=== PATIENT | male | born 1975 | race Native Hawaiian/Other Pacific Islander ===

== ENCOUNTER 2018-02-16 09:45 | Inpatient (IN) | payer OTHER ==
[~2018-02-16] VITALS: Ht 177.8 cm; Wt 146.9 kg
[2018-02-16 10:14] LABS: Basophils # (auto) 0.1 uL; Basophils % (auto) 0.9 % (0.0-2.0); Eosinophils # (auto) 0 uL; Eosinophils % (auto) 0.7 % (0.0-7.0); Hematocrit 51.1 % (41.0-53.0); Hemoglobin 16.5 g/dL (13.5-17.5); Lymphocytes # (auto) 2.8 uL; Mean Corpuscular Hemoglobin 29.1 pg (28.0-32.0); Mean Corpuscular Hgb Conc. 32.2 g/dL (32.0-36.0); Mean Corpuscular Volume 90.3 fL (80.0-100.0); Monocytes # (auto) 0.5 uL; Monocytes % (auto) 8.5 % (0.0-12.0); Neutrophils # (auto) 2.7 uL; Neutrophils % (auto) 43.9 % (37.0-80.0); Nucleated Red Blood Cells % 0.2 %; Platelet Count (auto) 206 10^3/uL (140-450); Red Blood Cells 5.66 10^6/uL (4.5-5.90); Red Cell Distribution Width 17.5 % (11.8-14.3); White Blood Cell 6.1 10^3/uL (4.4-10.8)
[2018-02-16 10:28] LABS: Albumin 3.2 g/dL (3.4-5.0); Calcium 8.7 mg/dL (8.5-10.1); Potassium 4.4 mmol/L (3.5-5.1)
[2018-02-16 10:33] LABS: BUN/Creatinine Ratio 10.9; Total Protein 7.3 g/dL (6.4-8.2)
[2018-02-16 10:43] LABS: INR 1.29 (0.9-1.15); Partial Thromboplastin Time 28.2 sec (23.78-33.04); Prothrombin Time 13.6 sec (9.27-12.13)
[2018-02-16] MEDS ORDERED: LABETALOL HCL 5 MG/ML ML 20ML VIAL IV ONE (12:00)
[2018-02-16] MEDS ORDERED: FUROSEMIDE 40 MG/4 ML VIAL IV ONE (12:00)
[2018-02-16] MEDS ORDERED: TEMAZEPAM 15 MG CAP PO PRN (13:30)
[2018-02-16] MEDS ORDERED: MORPHINE SULFATE 4 MG/ML SYR/VIAL IV PRN ×2 (13:30)
[2018-02-16] MEDS ORDERED: DEXTROSE (50%) 50ML SYRG IV PRN (13:30)
[2018-02-16] MEDS ORDERED: traMADol HCL 50 MG TAB PO PRN (13:30)
[2018-02-16] MEDS ORDERED: LACTULOSE 20Gm/30ML SOLN PO PRN (13:30)
[2018-02-16] MEDS ORDERED: LORazepam 0.5 MG TAB PO PRN (13:30)
[2018-02-16] MEDS ORDERED: NITROGLYCERIN 0.4 MG SL TAB SL PRN (13:30)
[2018-02-16] MEDS ORDERED: ONDANSETRON HCL 4 MG/2 ML VIAL IV PRN (13:30)
[2018-02-16 14:03] LABS: Urine Bacteria NONE SEEN /hpf (None Seen); Urine Blood Negative /uL (Negative); Urine Hyaline Cast MOD /lpf (0 - 2); Urine Mucus FEW (None Seen); Urine WBC 4 /hpf (0 - 3)
[2018-02-16] MEDS: CARVEDILOL 3.125 MG TAB PO SCH ×2 (14:05→21:45)
[2018-02-16] MEDS: ENALAPRIL MALEATE 2.5 MG TAB PO SCH (14:05)
[2018-02-16] MEDS: ASPirin 81 mg TAB PO SCH (14:05)
[2018-02-16] MEDS: ENOXAPARIN SOD 40 MG/0.4 ML SYRINGE SC SCH (14:05)
[2018-02-16] MEDS: SODIUM CHLOR 0.9% PF (SALINE LOCK) 10ML VIAL/SYR IV SCH ×2 (14:06→21:46)
[2018-02-16] MEDS: NITROGLYCERIN 0.2MG/HR TOPICAL PATCH TD SCH (14:06)
[2018-02-16 14:47] LABS: Alcohol, Urine < 3.0 mg/dL (0-5); Amphetamine Screen, Urine NEGATIVE (NEGATIVE); Barbiturate Scree,Urine NEGATIVE (NEGATIVE); Benzodiazephine Screen, Urine NEGATIVE (NEGATIVE); Cannabinoid Screen, Urine POSITIVE (NEGATIVE); Cocaine Screen, Urine NEGATIVE (NEGATIVE); Opiate Scree,Urine NEGATIVE (NEGATIVE); Phencyclidine Screen, Urine NEGATIVE (NEGATIVE)
[2018-02-16 15:07] VITALS: BP 145/108
[2018-02-16 16:39] VITALS: BP 141/95
[2018-02-16] MEDS: InsuLIN REG 1unit/0.01ml Soln (100units/ml) SC SCH ×2 (16:54→22:17)
[2018-02-16] MEDS: ACCU-CHEK COMFORT CURVE STRIP VI SCH ×2 (16:54→22:16)
[2018-02-16 20:00] VITALS: BP 147/92
[2018-02-16 22:00] VITALS: BP 147/92
[2018-02-17 05:00] VITALS: BP 126/75
[2018-02-17 05:55] LABS: Basophils # (auto) 0.1 uL; Basophils % (auto) 0.9 % (0.0-2.0); Eosinophils # (auto) 0.1 uL; Eosinophils % (auto) 1.1 % (0.0-7.0); Hematocrit 44.2 % (41.0-53.0); Hemoglobin 14.2 g/dL (13.5-17.5); Lymphocytes # (auto) 1.6 uL; Lymphocytes % (auto) 28.8 % (10.0-50.0); Mean Corpuscular Hemoglobin 28.6 pg (28.0-32.0); Mean Corpuscular Hgb Conc. 32.1 g/dL (32.0-36.0); Mean Corpuscular Volume 89.1 fL (80.0-100.0); Monocytes # (auto) 0.6 uL; Monocytes % (auto) 10.3 % (0.0-12.0); Neutrophils # (auto) 3.3 uL; Neutrophils % (auto) 58.9 % (37.0-80.0); Nucleated Red Blood Cells % 0.2 %; Platelet Count (auto) 189 10^3/uL (140-450); Red Blood Cells 4.96 10^6/uL (4.5-5.90); Red Cell Distribution Width 17.2 % (11.8-14.3); White Blood Cell 5.7 10^3/uL (4.4-10.8)
[2018-02-17 06:32] LABS: Potassium 3.9 mmol/L (3.5-5.1)
[2018-02-17 06:40] LABS: Albumin 2.5 g/dL (3.4-5.0); BUN/Creatinine Ratio 14.4; Bilirubin, Total 1.8 mg/dL (0.2-1.0); Calcium 7.8 mg/dL (8.5-10.1)
[2018-02-17] MEDS: SODIUM CHLOR 0.9% PF (SALINE LOCK) 10ML VIAL/SYR IV SCH ×3 (06:46→21:56)
[2018-02-17] MEDS: ACCU-CHEK COMFORT CURVE STRIP VI SCH ×4 (06:46→22:04)
[2018-02-17] MEDS: InsuLIN REG 1unit/0.01ml Soln (100units/ml) SC SCH ×4 (07:02→22:05)
[2018-02-17 08:30] VITALS: BP 124/79
[2018-02-17 09:00] VITALS: BP 124/79
[2018-02-17] MEDS: FUROSEMIDE 40 MG/4 ML VIAL IV SCH (09:30)
[2018-02-17] MEDS: PANTOPRAZOLE 40 MG TAB PO SCH (09:31)
[2018-02-17] MEDS: ENOXAPARIN SOD 40 MG/0.4 ML SYRINGE SC SCH (09:31)
[2018-02-17] MEDS: POTASSIUM CHL 20 Meq TABLET PO SCH (09:31)
[2018-02-17] MEDS: ASPirin 81 mg TAB PO SCH (09:31)
[2018-02-17] MEDS: CARVEDILOL 3.125 MG TAB PO SCH ×2 (09:32→21:57)
[2018-02-17] MEDS: ENALAPRIL MALEATE 2.5 MG TAB PO SCH (09:32)
[2018-02-17] MEDS: NITROGLYCERIN 0.2MG/HR TOPICAL PATCH TD SCH (09:33)
[2018-02-17] MEDS ORDERED: ENOXAPARIN SOD 40 MG/0.4 ML SYRINGE SC SCH (10:00)
[2018-02-17 11:42] LABS: Cholesterol 97 mg/dL (< 200)
[2018-02-17 11:45] LABS: HDL Cholesterol 25 mg/dL (40-59); LDL Cholesterol 73 mg/dL (< 100); Triglycerides 65 mg/dL (< 150)
[2018-02-17 13:00] VITALS: BP 140/94
[2018-02-17 17:00] VITALS: BP 109/73
[2018-02-17 22:03] VITALS: BP 124/68
[2018-02-18 05:43] VITALS: BP 125/78
[2018-02-18] MEDS: SODIUM CHLOR 0.9% PF (SALINE LOCK) 10ML VIAL/SYR IV SCH ×3 (06:36→22:15)
[2018-02-18] MEDS: ACCU-CHEK COMFORT CURVE STRIP VI SCH ×4 (06:36→22:15)
[2018-02-18] MEDS: InsuLIN REG 1unit/0.01ml Soln (100units/ml) SC SCH ×4 (06:37→22:15)
[2018-02-18 08:30] VITALS: BP 127/79
[2018-02-18 09:00] VITALS: BP 127/79
[2018-02-18] MEDS: ENOXAPARIN SOD 40 MG/0.4 ML SYRINGE SC SCH (09:45)
[2018-02-18] MEDS: PANTOPRAZOLE 40 MG TAB PO SCH (09:45)
[2018-02-18] MEDS: POTASSIUM CHL 20 Meq TABLET PO SCH (09:45)
[2018-02-18] MEDS: ASPirin 81 mg TAB PO SCH (09:46)
[2018-02-18] MEDS: NITROGLYCERIN 0.2MG/HR TOPICAL PATCH TD SCH (09:46)
[2018-02-18] MEDS: CARVEDILOL 3.125 MG TAB PO SCH ×2 (09:47→22:00)
[2018-02-18] MEDS: FUROSEMIDE 40 MG/4 ML VIAL IV SCH (09:47)
[2018-02-18] MEDS: ENALAPRIL MALEATE 2.5 MG TAB PO SCH (09:47)
[2018-02-18 13:00] VITALS: BP 133/76
[2018-02-18 17:00] VITALS: BP 118/76
[2018-02-18 22:00] VITALS: BP 117/63
[2018-02-19] VITALS (7 sets, daily range): BP systolic 94–143; BP diastolic 55–92
[2018-02-19] MEDS: ACCU-CHEK COMFORT CURVE STRIP VI SCH ×4 (06:19→21:57)
[2018-02-19] MEDS: InsuLIN REG 1unit/0.01ml Soln (100units/ml) SC SCH ×4 (06:19→21:57)
[2018-02-19] MEDS: SODIUM CHLOR 0.9% PF (SALINE LOCK) 10ML VIAL/SYR IV SCH ×3 (06:19→21:56)
[2018-02-19] MEDS: ACETAMINOPHEN 500 MG TAB PO PRN (06:19)
[2018-02-19] MEDS ORDERED: ADENOSINE 128 MG in GIVE UN-DILUTED 0 ML IV ONE (08:30)
[2018-02-19] MEDS: PANTOPRAZOLE 40 MG TAB PO SCH (14:47)
[2018-02-19] MEDS: ASPirin 81 mg TAB PO SCH (14:48)
[2018-02-19] MEDS: ENALAPRIL MALEATE 2.5 MG TAB PO SCH (14:48)
[2018-02-19] MEDS: CARVEDILOL 3.125 MG TAB PO SCH ×2 (14:48→21:57)
[2018-02-19] MEDS: POTASSIUM CHL 20 Meq TABLET PO SCH (14:48)
[2018-02-19] MEDS: NITROGLYCERIN 0.2MG/HR TOPICAL PATCH TD SCH (14:49)
[2018-02-19] MEDS: FUROSEMIDE 40 MG/4 ML VIAL IV SCH (14:49)
[2018-02-19] MEDS: ENOXAPARIN SOD 40 MG/0.4 ML SYRINGE SC SCH (14:49)
[2018-02-20 05:00] VITALS: BP 112/71
[2018-02-20] MEDS: SODIUM CHLOR 0.9% PF (SALINE LOCK) 10ML VIAL/SYR IV SCH ×3 (06:24→21:57)
[2018-02-20] MEDS: InsuLIN REG 1unit/0.01ml Soln (100units/ml) SC SCH ×4 (06:24→21:57)
[2018-02-20] MEDS: ACCU-CHEK COMFORT CURVE STRIP VI SCH ×4 (06:25→21:57)
[2018-02-20 09:00] VITALS: BP 125/93
[2018-02-20] MEDS: NITROGLYCERIN 0.2MG/HR TOPICAL PATCH TD SCH (10:00)
[2018-02-20] MEDS: ENOXAPARIN SOD 40 MG/0.4 ML SYRINGE SC SCH ×2 (10:00→10:04)
[2018-02-20] MEDS: POTASSIUM CHL 20 Meq TABLET PO SCH (10:03)
[2018-02-20] MEDS: FUROSEMIDE 40 MG/4 ML VIAL IV SCH (10:03)
[2018-02-20] MEDS: CARVEDILOL 3.125 MG TAB PO SCH ×2 (10:03→21:57)
[2018-02-20] MEDS: ASPirin 81 mg TAB PO SCH (10:03)
[2018-02-20] MEDS: ENALAPRIL MALEATE 2.5 MG TAB PO SCH (10:04)
[2018-02-20] MEDS: PANTOPRAZOLE 40 MG TAB PO SCH (10:04)
[2018-02-20 13:00] VITALS: BP 126/93
[2018-02-20 17:51] VITALS: BP 128/89
[2018-02-20] MEDS: ACETAMINOPHEN 500 MG TAB PO PRN (20:10)
[2018-02-20 21:06] VITALS: BP 124/75
[2018-02-21 04:40] VITALS: BP 122/82
[2018-02-21] MEDS: InsuLIN REG 1unit/0.01ml Soln (100units/ml) SC SCH ×4 (06:30→22:50)
[2018-02-21] MEDS: SODIUM CHLOR 0.9% PF (SALINE LOCK) 10ML VIAL/SYR IV SCH ×3 (06:30→22:50)
[2018-02-21] MEDS: ACCU-CHEK COMFORT CURVE STRIP VI SCH ×4 (06:31→22:43)
[2018-02-21 07:53] VITALS: BP 136/93
[2018-02-21 08:00] VITALS: BP 136/93
[2018-02-21] MEDS: ENALAPRIL MALEATE 2.5 MG TAB PO SCH (10:02)
[2018-02-21] MEDS: FUROSEMIDE 40 MG/4 ML VIAL IV SCH (10:03)
[2018-02-21] MEDS: CARVEDILOL 3.125 MG TAB PO SCH ×2 (10:03→22:43)
[2018-02-21] MEDS: PANTOPRAZOLE 40 MG TAB PO SCH (10:04)
[2018-02-21] MEDS: POTASSIUM CHL 20 Meq TABLET PO SCH (10:04)
[2018-02-21] MEDS: ENOXAPARIN SOD 40 MG/0.4 ML SYRINGE SC SCH (10:04)
[2018-02-21] MEDS: NITROGLYCERIN 0.2MG/HR TOPICAL PATCH TD SCH (10:08)
[2018-02-21] MEDS: ASPirin 81 mg TAB PO SCH (10:11)
[2018-02-21 11:36] VITALS: BP 154/86
[2018-02-21 16:08] VITALS: BP 129/86
[2018-02-21 22:00] VITALS: BP 128/98
[2018-02-21] MEDS: ACETAMINOPHEN 500 MG TAB PO PRN (22:51)
[2018-02-22 05:00] VITALS: BP 123/80
[2018-02-22] MEDS: SODIUM CHLOR 0.9% PF (SALINE LOCK) 10ML VIAL/SYR IV SCH ×2 (05:35→14:00)
[2018-02-22] MEDS: ACCU-CHEK COMFORT CURVE STRIP VI SCH ×2 (06:08→11:30)
[2018-02-22] MEDS: InsuLIN REG 1unit/0.01ml Soln (100units/ml) SC SCH ×2 (06:23→11:30)
[2018-02-22 09:00] VITALS: BP 122/84
[2018-02-22] MEDS: NITROGLYCERIN 0.2MG/HR TOPICAL PATCH TD SCH (09:40)
[2018-02-22] MEDS: POTASSIUM CHL 20 Meq TABLET PO SCH (09:41)
[2018-02-22] MEDS: PANTOPRAZOLE 40 MG TAB PO SCH (09:41)
[2018-02-22] MEDS: FUROSEMIDE 40 MG/4 ML VIAL IV SCH (09:41)
[2018-02-22] MEDS: ENOXAPARIN SOD 40 MG/0.4 ML SYRINGE SC SCH (09:41)
[2018-02-22] MEDS: ASPirin 81 mg TAB PO SCH (09:41)
[2018-02-22] MEDS: CARVEDILOL 3.125 MG TAB PO SCH (10:00)
[2018-02-22 13:00] VITALS: BP 153/92
[2018-02-22 15:01] VITALS: BP 122/84
[2018-02-22] MEDS ORDERED: SACUBITRIL-VALSARTAN 24mg/26mg TAB PO SCH (22:00)
== END 2018-02-22 16:48 | disposition home or self-care (01) | DRG 291 ==
LOC: ER 09:45 → TELE 09:46 → TELE-WESTW 15:03
PROVIDERS: ADMIT Internal Medicine; ATTEND Family Medicine
DX: I13.0 Hypertensive heart and chronic kidney disease with heart failure and stage 1 through stage 4 chronic kidney disease, or unspecified chronic kidney disease (principal); I50.43 Acute on chronic combined systolic (congestive) and diastolic (congestive) heart failure; Z68.42 Body mass index [BMI] 45.0-49.9, adult; N17.9 Acute kidney failure, unspecified; R04.2 Hemoptysis; E11.65 Type 2 diabetes mellitus with hyperglycemia; I42.0 Dilated cardiomyopathy; E11.22 Type 2 diabetes mellitus with diabetic chronic kidney disease; N18.9 Chronic kidney disease, unspecified; R00.0 Tachycardia, unspecified; E11.21 Type 2 diabetes mellitus with diabetic nephropathy; E66.01 Morbid (severe) obesity due to excess calories; F12.90 Cannabis use, unspecified, uncomplicated; Z82.49 Family history of ischemic heart disease and other diseases of the circulatory system; Z82.5 Family history of asthma and other chronic lower respiratory diseases; Z83.3 Family history of diabetes mellitus; Z91.19 Patient's noncompliance with other medical treatment and regimen
CPT/HCPCS: 36415; 71046; 78452; 80053; 80061; 80307; 81001; 82550; 82962; 83036; 83735; 83880; 84443; 84484; 85025; 85610; 85730; 86141; 93005; 93017; 93306; 93971; 94761; 96374; 96375; G0378; J0153; J1815

== ENCOUNTER → 2018-04-26 | Outpatient (CLI) | payer OTHER ==
[2018-04-26 14:28] LABS: Basophils # (auto) 0 uL; Eosinophils # (auto) 0.1 uL; Monocytes # (auto) 0.6 uL; Neutrophils # (auto) 4.9 uL
[2018-04-26 14:31] LABS: Urine Bacteria FEW /hpf (None Seen); Urine Blood Negative /uL (Negative); Urine Hyaline Cast MOD /lpf (0 - 2); Urine Mucus FEW (None Seen); Urine Specific Gravity 1.007 (1.001-1.035); Urine Sperm PRESENT /hpf (None Seen); Urine WBC <1 /hpf (0 - 3)
[2018-04-26 14:38] LABS: Basophils % (auto) 0.3 % (0.0-2.0); Eosinophils % (auto) 1.4 % (0.0-7.0); Hematocrit 47.2 % (41.0-53.0); Hemoglobin 16.2 g/dL (13.5-17.5); Lymphocytes % (auto) 34.7 % (10.0-50.0); Mean Corpuscular Hemoglobin 29.8 pg (28.0-32.0); Mean Corpuscular Hgb Conc. 34.4 g/dL (32.0-36.0); Mean Corpuscular Volume 86.9 fL (80.0-100.0); Monocytes % (auto) 6.9 % (0.0-12.0); Neutrophils % (auto) 56.7 % (37.0-80.0); Nucleated Red Blood Cells % 0.1 %; Platelet Count (auto) 271 10^3/uL (140-450); Red Blood Cells 5.43 10^6/uL (4.5-5.90); Red Cell Distribution Width 15.6 % (11.8-14.3); White Blood Cell 8.6 10^3/uL (4.4-10.8)
[2018-04-26 14:54] LABS: Potassium 4.5 mmol/L (3.5-5.1)
[2018-04-26 14:59] LABS: BUN/Creatinine Ratio 21.1; Bilirubin, Total 0.8 mg/dL (0.2-1.0); Total Protein 8.9 g/dL (6.4-8.2)
== END | disposition home or self-care (01) ==
LOC: LAB 13:33
PROVIDERS: ATTEND Nurse Practitioner
DX: E78.5 Hyperlipidemia, unspecified (principal)
CPT/HCPCS: 36415; 80053; 80061; 81001; 82306; 83036; 83880; 84443; 85025

== ENCOUNTER → 2018-05-28 | Outpatient (CLI) | payer OTHER | END | disposition home or self-care (01) | LOC: Rad HDHVI 08:52 | PROVIDERS: ATTEND Internal Medicine | DX: I07.1 Rheumatic tricuspid insufficiency (principal); I11.0 Hypertensive heart disease with heart failure; I50.9 Heart failure, unspecified; I42.9 Cardiomyopathy, unspecified | CPT/HCPCS: 93306 ==

== ENCOUNTER 2018-11-28 12:42 | Inpatient (IN) | payer MEDICAID ==
[~2018-11-28] VITALS: Ht 177.8 cm; Wt 130.7 kg
[2018-11-28 13:41] LABS: Basophils # (auto) 0.1 uL; Basophils % (auto) 0.8 % (0.0-2.0); Eosinophils # (auto) 0.1 uL; Eosinophils % (auto) 1.1 % (0.0-7.0); Hematocrit 40.4 % (41.0-53.0); Hemoglobin 13.6 g/dL (13.5-17.5); Lymphocytes # (auto) 3.2 uL; Lymphocytes % (auto) 36.6 % (10.0-50.0); Mean Corpuscular Hemoglobin 29.7 pg (28.0-32.0); Mean Corpuscular Hgb Conc. 33.7 g/dL (32.0-36.0); Mean Corpuscular Volume 88.1 fL (80.0-100.0); Monocytes # (auto) 0.5 uL; Monocytes % (auto) 5.4 % (0.0-12.0); Neutrophils % (auto) 56.1 % (37.0-80.0); Platelet Count (auto) 288 10^3/uL (140-450); Red Blood Cells 4.59 10^6/uL (4.5-5.90); Red Cell Distribution Width 15.3 % (11.8-14.3); White Blood Cell 8.8 10^3/uL (4.4-10.8)
[2018-11-28 13:59] LABS: Alanine Aminotransferase 28 U/L (16-61); Albumin 3.7 g/dL (3.4-5.0); Anion Gap 7 (5-15); Blood Urea Nitrogen 19 mg/dL (7-18); Carbon Dioxide 28 mmol/L (21-32); Chloride 105 mmol/L (98-107); Glucose 124 mg/dL (74-106); Potassium 4.3 mmol/L (3.5-5.1); Sodium 140 mmol/L (136-145)
[2018-11-28 14:04] LABS: Alkaline Phosphatase 84 U/L (45-117); Aspartate Aminotransferase 21 U/L (15-37); BUN/Creatinine Ratio 17.1; Bilirubin, Total 0.5 mg/dL (0.2-1.0); GFR African American 93 mL/min; GFR Non-African American 76 mL/min; Total Protein 8.6 g/dL (6.4-8.2)
[2018-11-28] MEDS ORDERED: SODIUM CHLORIDE 0.9% 1,000 ML IV ONE (16:53)
[2018-11-28] MEDS ORDERED: ASPirin 81 mg TAB PO ONE (17:00)
[2018-11-28] MEDS ORDERED: MORPHINE SULF INJ 2 MG/ML SYRINGE 1ML IV PRN ×2 (18:30)
[2018-11-28] MEDS ORDERED: DEXTROSE (50%) 50ML SYRG IV PRN (18:30)
[2018-11-28] MEDS ORDERED: ACETAMINOPHEN 500 MG TAB PO PRN (18:30)
[2018-11-28] MEDS ORDERED: ONDANSETRON HCL 4 MG/2 ML VIAL IV PRN (18:30)
[2018-11-28] MEDS ORDERED: NITROGLYCERIN 0.4 MG SL TAB SL PRN (18:30)
[2018-11-28] MEDS ORDERED: HYDROcodone-ACET 5/325MG TAB PO PRN (18:30)
[2018-11-28 20:32] VITALS: BP 110/68
[2018-11-28] MEDS: CARVEDILOL 3.125 MG TAB PO SCH (21:27)
[2018-11-28] MEDS: ATORVASTATIN 20 MG TAB PO SCH (21:28)
[2018-11-28] MEDS: ACCU-CHEK COMFORT CURVE STRIP VI SCH (21:28)
[2018-11-28] MEDS: InsuLIN REG 1unit/0.01ml Soln (100units/ml) SC SCH (21:28)
[2018-11-28] MEDS ORDERED: DOCU-94 PO (21:58)
[2018-11-28] MEDS ORDERED: FURO1TAB31 PO (21:58)
[2018-11-28] MEDS ORDERED: FER300LQ PO (21:58)
[2018-11-28] MEDS ORDERED: ASPI81CH43 PO (21:58)
[2018-11-28] MEDS ORDERED: CHOL20007 PO (21:58)
[2018-11-28] MEDS ORDERED: CARV6.2551 PO (21:58)
[2018-11-28] MEDS ORDERED: METF-372 PO (21:58)
[2018-11-28] MEDS ORDERED: SACU1TAB7 PO (21:58)
[2018-11-28] MEDS ORDERED: AML5T PO (21:58)
[2018-11-28 22:00] VITALS: BP 110/68
--- NOTE | 2018-11-28 23:21 | NUR ---
Telemetry admit from ER YASMINE LANDERS admitted to Telemetry unit. Patient oriented to Rick Gutierrez, primary RN, unit, room, bed, and unit policies regarding patient care and visiting hours. Patient now on continuous telemetry monitoring, tele box #28 and telemetry reading on arrival to unit is SR 72. Patient placed on bedside oxygen, weighed by bedscale and encouraged to call if they need something. All questions and concerns addressed, patient verbalized understanding.
[2018-11-29 05:00] VITALS: BP 106/61
[2018-11-29] MEDS: ACCU-CHEK COMFORT CURVE STRIP VI SCH ×4 (06:27→21:28)
[2018-11-29] MEDS: InsuLIN REG 1unit/0.01ml Soln (100units/ml) SC SCH ×4 (06:27→21:27)
[2018-11-29 06:33] LABS: Basophils # (auto) 0 uL; Basophils % (auto) 0.3 % (0.0-2.0); Eosinophils # (auto) 0.1 uL; Eosinophils % (auto) 1.1 % (0.0-7.0); Hematocrit 39.1 % (41.0-53.0); Hemoglobin 12.9 g/dL (13.5-17.5); Lymphocytes % (auto) 31.7 % (10.0-50.0); Mean Corpuscular Hemoglobin 29.3 pg (28.0-32.0); Mean Corpuscular Volume 88.6 fL (80.0-100.0); Monocytes # (auto) 0.6 uL; Monocytes % (auto) 6.4 % (0.0-12.0); Neutrophils # (auto) 5.7 uL; Neutrophils % (auto) 60.5 % (37.0-80.0); Nucleated Red Blood Cells % 0.1 %; Platelet Count (auto) 271 10^3/uL (140-450); Red Blood Cells 4.41 10^6/uL (4.5-5.90); Red Cell Distribution Width 15.2 % (11.8-14.3); White Blood Cell 9.3 10^3/uL (4.4-10.8)
[2018-11-29 06:41] LABS: INR 1.01 (0.9-1.15); Partial Thromboplastin Time 30.3 sec (23.64-32.05)
[2018-11-29 07:07] LABS: BUN/Creatinine Ratio 18.7; Potassium 3.9 mmol/L (3.5-5.1)
--- NOTE | 2018-11-29 07:10 | NUR ---
CLOSING NOTE The patient is comfortable in bed. Care has been endorsed to day shift RN.
--- NOTE | 2018-11-29 07:50 | NUR ---
Opening Shift Note Assumed care of patient, awake and alert. Orientated patient to room and RN, Lluvia. No S/S of distress/SOB or pain. Instructed on POC and to call for assist PRN, will continue to monitor for changes Q1hr and PRN.
[2018-11-29 08:00] VITALS: BP 104/70
[2018-11-29 09:00] VITALS: BP 104/70
[2018-11-29] MEDS: amLODIPine BESYLATE 5 MG TAB PO SCH (09:57)
[2018-11-29] MEDS: CARVEDILOL 3.125 MG TAB PO SCH ×2 (09:58→21:26)
[2018-11-29] MEDS: SACUBITRIL-VALSARTAN 24mg/26mg TAB PO SCH ×2 (09:58→21:27)
[2018-11-29] MEDS: FUROSEMIDE 20 MG TAB PO SCH (09:59)
[2018-11-29] MEDS: FAMOTIDINE 20 MG TAB PO SCH (09:59)
[2018-11-29] MEDS ORDERED: PNEUMOCOCCAL VACC POLYS 25 MCG/0.5 ML VIAL IM ONE (10:00)
[2018-11-29] MEDS: ASPirin-EC 81 mg tab PO SCH (10:00)
[2018-11-29 12:53] VITALS: BP 112/77
[2018-11-29 17:00] VITALS: BP 130/86
[2018-11-29] MEDS ORDERED: CLOPIDOGREL 300 MG TAB PO ONE ×2 (17:15→18:00)
[2018-11-29 17:43] LABS: Cholesterol 143 mg/dL (< 200); HDL Cholesterol 33 mg/dL (40-59); LDL Cholesterol 94 mg/dL (< 100); Triglycerides 116 mg/dL (< 150)
--- NOTE | 2018-11-29 19:15 | NUR ---
assumed care, pt. awake, advised pt. npo after mn, no c/o pain, no sob.
[2018-11-29] MEDS: ATORVASTATIN 20 MG TAB PO SCH (21:27)
[2018-11-29] MEDS: ENOXAPARIN SOD 150 MG/1 ML SYRINGE SC SCH (21:28)
[2018-11-29 22:00] VITALS: BP 123/69
[2018-11-30] MEDS: SODIUM CHLORIDE 0.9% 1,000 ML IV SCH ×3 (00:02→15:39)
[2018-11-30 05:00] VITALS: BP 104/61
[2018-11-30] MEDS: InsuLIN REG 1unit/0.01ml Soln (100units/ml) SC SCH ×3 (06:06→17:00)
[2018-11-30] MEDS: ACCU-CHEK COMFORT CURVE STRIP VI SCH ×3 (06:07→17:16)
[2018-11-30 07:49] LABS: Basophils # (auto) 0 uL; Basophils % (auto) 0.4 % (0.0-2.0); Eosinophils # (auto) 0.1 uL; Eosinophils % (auto) 1.3 % (0.0-7.0); Hematocrit 37.5 % (41.0-53.0); Hemoglobin 12.4 g/dL (13.5-17.5); Lymphocytes # (auto) 3.1 uL; Lymphocytes % (auto) 37.9 % (10.0-50.0); Mean Corpuscular Hemoglobin 29.3 pg (28.0-32.0); Mean Corpuscular Hgb Conc. 33.1 g/dL (32.0-36.0); Mean Corpuscular Volume 88.5 fL (80.0-100.0); Monocytes # (auto) 0.6 uL; Monocytes % (auto) 7.2 % (0.0-12.0); Neutrophils # (auto) 4.3 uL; Neutrophils % (auto) 53.2 % (37.0-80.0); Platelet Count (auto) 266 10^3/uL (140-450); Red Blood Cells 4.24 10^6/uL (4.5-5.90); Red Cell Distribution Width 15.2 % (11.8-14.3); White Blood Cell 8.1 10^3/uL (4.4-10.8)
[2018-11-30 08:00] VITALS: BP 122/76
[2018-11-30 08:02] LABS: INR < 0.93 (0.9-1.15); Partial Thromboplastin Time 28.5 sec (23.64-32.05)
[2018-11-30 08:07] LABS: Calcium 8.2 mg/dL (8.5-10.1)
--- NOTE | 2018-11-30 09:00 | NUR ---
Opening Shift Note Assumed care of patient, awake and alert, oriented x4 and verbally responsive. Respiratory even and unlabored. No S/S of distress/SOB or pain. Skin is warm and dry to touch. No s/s of hyperglycemia or hypoglycemia noted. Instructed on POC and to call for assist PRN, will continue to monitor for changes Q1hr and PRN.
--- NOTE | 2018-11-30 09:15 | NUR ---
Patient left unit to labor relations specialist.
[2018-11-30] MEDS ORDERED: CLOPIDOGREL BISULFATE 75 MG TAB PO SCH (10:00)
[2018-11-30] MEDS: ENOXAPARIN SOD 150 MG/1 ML SYRINGE SC SCH (10:00)
[2018-11-30] MEDS ORDERED: IODIXANOL 320MG/ML 100ML BTL IV ONE (10:35)
[2018-11-30] MEDS ORDERED: LIDOCAINE 2%HCL (LOCAL ANESTH.) INJ 20ML MDV ONE (10:35)
[2018-11-30] MEDS ORDERED: ANGIOMAX 250 MG VIAL IV ONE (11:41)
[2018-11-30] MEDS ORDERED: fentaNYL CITRATE 100 MCG/2 ML VL ONE (11:42)
[2018-11-30] MEDS ORDERED: SODIUM CHL 0.9% 0 ML ONE (11:42)
[2018-11-30] MEDS ORDERED: MIDAZOLAM HCL 1MG/1ML-2 ML VIAL ONE ×2 (11:42→12:52)
[2018-11-30 14:00] VITALS: BP 141/81
[2018-11-30] MEDS: SACUBITRIL-VALSARTAN 24mg/26mg TAB PO SCH (14:21)
[2018-11-30] MEDS: ASPirin-EC 81 mg tab PO SCH (14:21)
[2018-11-30] MEDS: CARVEDILOL 3.125 MG TAB PO SCH (14:21)
[2018-11-30] MEDS: FAMOTIDINE 20 MG TAB PO SCH (14:22)
[2018-11-30] MEDS: amLODIPine BESYLATE 5 MG TAB PO SCH (14:22)
[2018-11-30] MEDS: FUROSEMIDE 20 MG TAB PO SCH (14:22)
[2018-11-30 17:00] VITALS: BP 134/79
[2018-11-30 18:09] VITALS: BP 134/79
--- NOTE | 2018-11-30 19:00 | NUR ---
Discharge instructions given as ordered. Encourage to follow up with PMD (FOLLOW UP [facility] DR[facility] PAYNE [id number] [facility] [place] [address] EXT. [phone]. FOLLOW UP WITH DR. WALDEN [id number] [place] [address] , FOLLOW UP WITH DR. MAME ZAYAS IN 12/14/18 AT 10.15 #[phone] ADDRESS : [id number], [place] [address])as instructed. All questions and concerns addressed. Patient verbalized understanding. Medication reconciliation form completed and copy given to patient. Home medications held in Pharmacy returned to patient, and needed vaccines given. IV removed with catheter intact, pressure dressing applied. Telemetry unit returned to [facility]. Patient taken to vehicle via wheelchair with all personal belongings, accompanied by staff and family member. No distress noted at time of departure.
== END 2018-11-30 19:00 | disposition home or self-care (01) | DRG 351 ==
LOC: ER 12:42 → TELE 12:43 → TELE-WESTW 20:35
PROVIDERS: ADMIT Nurse Practitioner Acute Care; ATTEND Hospitalist
PROC: 4A023N7 Measurement of Cardiac Sampling and Pressure, Left Heart, Percutaneous Approach (ICD-10-PCS; principal; 2018-11-30)
PROC: B2111ZZ Fluoroscopy of Multiple Coronary Arteries using Low Osmolar Contrast (ICD-10-PCS; 2018-11-30)
PROC: B2151ZZ Fluoroscopy of Left Heart using Low Osmolar Contrast (ICD-10-PCS; 2018-11-30)
DX: S43.402A Unspecified sprain of left shoulder joint, initial encounter (principal); I42.0 Dilated cardiomyopathy; I20.0 Unstable angina; I11.0 Hypertensive heart disease with heart failure; I50.22 Chronic systolic (congestive) heart failure; Z68.41 Body mass index [BMI] 40.0-44.9, adult; D64.9 Anemia, unspecified; E11.9 Type 2 diabetes mellitus without complications; F12.90 Cannabis use, unspecified, uncomplicated; E66.9 Obesity, unspecified; X58.XXXA Exposure to other specified factors, initial encounter; S46.912A Strain of unspecified muscle, fascia and tendon at shoulder and upper arm level, left arm, initial encounter; J45.909 Unspecified asthma, uncomplicated; Z79.4 Long term (current) use of insulin; Z79.82 Long term (current) use of aspirin; Z79.899 Other long term (current) drug therapy; Z82.49 Family history of ischemic heart disease and other diseases of the circulatory system; Y93.89 Activity, other specified; Y92.89 Other specified places as the place of occurrence of the external cause; Y99.8 Other external cause status
CPT/HCPCS: 36415; 71046; 80048; 80053; 80061; 82962; 83880; 84443; 84484; 85025; 85379; 85610; 85730; 86141; 86850; 86900; 86901; 93005; 93306; 93458; 94761; 99152; G0378; J1815; J2250; Q9967

== ENCOUNTER 2019-10-20 07:52 | Inpatient (IN) | payer MEDICAID ==
[~2019-10-20] VITALS: Ht 177.8 cm; Wt 125.6 kg
[~2019-10-20 07:52] MED LIST: AML5T PO; ASPI81CH43 PO; CARV6.2551 PO; CHOL20007 PO; DOCU-94 PO; FER300LQ PO; FURO1TAB31 PO; METF-372 PO; SACU1TAB7 PO
[2019-10-20] MEDS ORDERED: SODIUM CHLORIDE 0.9% 500 ML IVB ONE (08:10)
[2019-10-20] MEDS ORDERED: SODIUM CHLORIDE 0.9% 1,000 ML IV ONE (08:10)
[2019-10-20] MEDS ORDERED: METOCLOPRAMIDE HCL 5MG/ml INJ 2ml VIAL IV ONE (08:15)
[2019-10-20] MEDS ORDERED: KETOROLAC TROMETH 30 MG/ML 1ML VIAL IV ONE (08:15)
[2019-10-20 09:12] LABS: Basophils # (auto) 0.1 10 ^3/uL (0-0.2); Basophils % (auto) 0.5 % (0.0-2.0); Eosinophils # (auto) 0 10 ^3/uL (0-0.8); Eosinophils % (auto) 0.3 % (0.0-7.0); Hematocrit 42.9 % (41.0-53.0); Hemoglobin 14.1 g/dL (13.5-17.5); Lymphocytes # (auto) 2.8 10 ^3/uL (0.4-5.4); Lymphocytes % (auto) 28.7 % (10.0-50.0); Mean Corpuscular Hemoglobin 28.9 pg (28.0-32.0); Mean Corpuscular Volume 87.7 fL (80.0-100.0); Monocytes # (auto) 0.7 10 ^3/uL (0-1.3); Monocytes % (auto) 6.9 % (0.0-12.0); Neutrophils # (auto) 6.2 10 ^3/uL (1.6-8.6); Neutrophils % (auto) 63.6 % (37.0-80.0); Nucleated Red Blood Cells % 0.1 %; Platelet Count (auto) 293 10^3/uL (140-450); Red Blood Cells 4.89 10^6/uL (4.5-5.90); Red Cell Distribution Width 15.1 % (11.8-14.3); White Blood Cell 9.8 10^3/uL (4.4-10.8)
[2019-10-20 09:21] LABS: Urine Bacteria NONE SEEN /hpf (None Seen); Urine Blood Negative /uL (Negative); Urine Specific Gravity 1.027 (1.001-1.035); Urine WBC 1 /hpf (0 - 3)
[2019-10-20 09:26] LABS: Bilirubin, Total 0.6 mg/dL (0.2-1.0); Total Protein 8.6 g/dL (6.4-8.2)
[2019-10-20 09:39] LABS: Magnesium 2.2 mg/dL (1.6-2.6)
[2019-10-20] MEDS ORDERED: SODIUM CHLORIDE 0.9% 1,000 ML IV SCH (12:01)
[2019-10-20] MEDS ORDERED: ACETAMINOPHEN 325 MG TAB PO PRN (12:15)
[2019-10-20] MEDS ORDERED: NITROGLYCERIN 0.4 MG SL TAB SL PRN (12:15)
[2019-10-20] MEDS ORDERED: TAMSULOSIN HYDROCHLORIDE 0.4 MG CAP PO ONE (12:15)
[2019-10-20] MEDS ORDERED: DOCUSATE SOD 100 MG CAP PO PRN (12:15)
[2019-10-20] MEDS ORDERED: FAMOTIDINE (10MG/ML) 2ML VL IV ONE (12:15)
[2019-10-20] MEDS ORDERED: ONDANSETRON HCL 4 MG/2 ML VIAL IV PRN (12:15)
[2019-10-20] MEDS ORDERED: CEFTRIAXONE SODIUM 2 GM in D5W 5% 50 ML IV ONE (12:15)
[2019-10-20] MEDS ORDERED: MORPHINE SULF INJ 2 MG/ML SYRINGE 1ML IV PRN (12:15)
[2019-10-20] MEDS ORDERED: HYDROcodone-ACET 5/325MG TAB PO PRN (12:15)
[2019-10-20] MEDS ORDERED: LORazepam 0.5 MG TAB PO PRN (12:15)
[2019-10-20] MEDS ORDERED: ALUM & MAG HYDROX-SIMETH LIQ(MAALOX) 30 ML PO PRN (12:15)
[2019-10-20] MEDS: SODIUM CHLORIDE 0.9% 1,000 ML IV SCH (15:35)
[2019-10-20] MEDS ORDERED: CHOLECALCIFEROL (VITD3) 1,000UNIT=25mCg TAB PO ONE (16:00)
[2019-10-20] MEDS ORDERED: hydrALAZINE HCL 20 MG/ML VL IV PRN (16:00)
[2019-10-20] MEDS ORDERED: FUROSEMIDE 20 MG/2 ML VIAL IV ONE (16:00)
[2019-10-20 17:00] VITALS: BP 120/70
[2019-10-20] MEDS: metFORMIN HYDROCHLORIDE 500 MG TAB PO SCH (17:35)
[2019-10-20] MEDS: FUROSEMIDE 20 MG/2 ML VIAL IV SCH (17:35)
[2019-10-20] MEDS: TAMSULOSIN HYDROCHLORIDE 0.4 MG CAP PO SCH (17:35)
[2019-10-20] MEDS ORDERED: PANT40T PO (17:38)
[2019-10-20] MEDS ORDERED: CYAN100056 PO (17:38)
[2019-10-20] MEDS: MORPHINE SULF INJ 2 MG/ML SYRINGE 1ML IV PRN ×2 (17:41→22:18)
[2019-10-20 20:00] VITALS: BP 97/58
[2019-10-20] MEDS: CARVEDILOL 3.125 MG TAB PO SCH (22:00)
[2019-10-20] MEDS: ATORVASTATIN 20 MG TAB PO SCH (22:17)
[2019-10-20] MEDS: FAMOTIDINE (10MG/ML) 2ML VL IV SCH (22:17)
[2019-10-20] MEDS: SACUBITRIL-VALSARTAN 24mg/26mg TAB PO SCH (22:17)
[2019-10-21] VITALS (7 sets, daily range): BP systolic 94–128; BP diastolic 69–80
[2019-10-21] MEDS: SODIUM CHLORIDE 0.9% 1,000 ML IV SCH ×3 (01:00→21:00)
[2019-10-21] MEDS: FUROSEMIDE 20 MG/2 ML VIAL IV SCH ×2 (06:08→16:42)
[2019-10-21 06:54] LABS: Basophils # (auto) 0 10 ^3/uL (0-0.2); Basophils % (auto) 0.3 % (0.0-2.0); Eosinophils # (auto) 0.1 10 ^3/uL (0-0.8); Eosinophils % (auto) 1.2 % (0.0-7.0); Hematocrit 35.9 % (41.0-53.0); Hemoglobin 12.2 g/dL (13.5-17.5); Lymphocytes # (auto) 2.5 10 ^3/uL (0.4-5.4); Mean Corpuscular Hemoglobin 29.9 pg (28.0-32.0); Mean Corpuscular Hgb Conc. 33.9 g/dL (32.0-36.0); Mean Corpuscular Volume 88.1 fL (80.0-100.0); Monocytes # (auto) 0.8 10 ^3/uL (0-1.3); Monocytes % (auto) 9.5 % (0.0-12.0); Neutrophils # (auto) 4.7 10 ^3/uL (1.6-8.6); Platelet Count (auto) 236 10^3/uL (140-450); Red Blood Cells 4.08 10^6/uL (4.5-5.90); Red Cell Distribution Width 15.5 % (11.8-14.3); White Blood Cell 8.1 10^3/uL (4.4-10.8)
[2019-10-21 07:08] LABS: Albumin 3.2 g/dL (3.4-5.0); Potassium 4.4 mmol/L (3.5-5.1)
[2019-10-21 07:11] LABS: BUN/Creatinine Ratio 12.9; Bilirubin, Total 0.6 mg/dL (0.2-1.0); Total Protein 7.1 g/dL (6.4-8.2)
[2019-10-21 07:12] LABS: INR 1.01 (0.9-1.15); Partial Thromboplastin Time 29.2 sec (23.64-32.05)
[2019-10-21] MEDS: metFORMIN HYDROCHLORIDE 500 MG TAB PO SCH ×2 (08:39→18:32)
[2019-10-21] MEDS: MORPHINE SULF INJ 2 MG/ML SYRINGE 1ML IV PRN (08:40)
[2019-10-21] MEDS ORDERED: MANNITOL FTV 25% 12.5 GM/50 ML 50 ML IV ONE (09:00)
[2019-10-21] MEDS: ENOXAPARIN SOD 40 MG/0.4 ML SYRINGE SC SCH (09:59)
[2019-10-21] MEDS ORDERED: PANTOPRAZOLE 40 MG TAB PO SCH (10:00)
[2019-10-21] MEDS: CEFTRIAXONE SODIUM 2 GM in D5W 5% 50 ML IV SCH (10:00)
[2019-10-21] MEDS: FAMOTIDINE (10MG/ML) 2ML VL IV SCH (10:00)
[2019-10-21] MEDS: CARVEDILOL 3.125 MG TAB PO SCH ×2 (10:01→18:33)
[2019-10-21] MEDS: CHOLECALCIFEROL (VITD3) 1,000UNIT=25mCg TAB PO SCH (10:01)
[2019-10-21] MEDS: ASPirin 81 mg TAB PO SCH (10:01)
[2019-10-21] MEDS: SACUBITRIL-VALSARTAN 24mg/26mg TAB PO SCH ×2 (10:02→22:28)
[2019-10-21] MEDS ORDERED: PANTOPRAZOLE 40 MG TAB PO ONE (13:15)
[2019-10-21] MEDS ORDERED: DEXTROSE (50%) 50ML SYRG IV PRN (16:30)
[2019-10-21] MEDS: TAMSULOSIN HYDROCHLORIDE 0.4 MG CAP PO SCH (16:42)
[2019-10-21] MEDS: ACCU-CHEK COMFORT CURVE STRIP VI SCH ×2 (16:54→22:29)
[2019-10-21] MEDS: InsuLIN REG 1unit/0.01ml Soln (100units/ml) SC SCH ×2 (16:54→22:00)
[2019-10-21] MEDS: ATORVASTATIN 20 MG TAB PO SCH (22:28)
[2019-10-21] MEDS: PANTOPRAZOLE 40 MG TAB PO SCH (22:29)
[2019-10-22] MEDS: MORPHINE SULF INJ 2 MG/ML SYRINGE 1ML IV PRN ×2 (03:05→10:32)
[2019-10-22 05:33] VITALS: BP 119/75
[2019-10-22] MEDS: FUROSEMIDE 20 MG/2 ML VIAL IV SCH ×2 (06:29→17:51)
[2019-10-22 06:42] LABS: Basophils # (auto) 0 10 ^3/uL (0-0.2); Basophils % (auto) 0.3 % (0.0-2.0); Eosinophils # (auto) 0.2 10 ^3/uL (0-0.8); Eosinophils % (auto) 3.3 % (0.0-7.0); Hematocrit 35.2 % (41.0-53.0); Hemoglobin 11.8 g/dL (13.5-17.5); Lymphocytes # (auto) 2.8 10 ^3/uL (0.4-5.4); Lymphocytes % (auto) 40.1 % (10.0-50.0); Mean Corpuscular Hemoglobin 29.5 pg (28.0-32.0); Mean Corpuscular Hgb Conc. 33.5 g/dL (32.0-36.0); Mean Corpuscular Volume 88.1 fL (80.0-100.0); Monocytes # (auto) 0.6 10 ^3/uL (0-1.3); Monocytes % (auto) 8.7 % (0.0-12.0); Neutrophils # (auto) 3.3 10 ^3/uL (1.6-8.6); Neutrophils % (auto) 47.6 % (37.0-80.0); Nucleated Red Blood Cells % 0.1 %; Platelet Count (auto) 229 10^3/uL (140-450); Red Blood Cells 3.99 10^6/uL (4.5-5.90); Red Cell Distribution Width 15.2 % (11.8-14.3)
[2019-10-22] MEDS: InsuLIN REG 1unit/0.01ml Soln (100units/ml) SC SCH ×4 (07:00→22:00)
[2019-10-22 07:05] LABS: Potassium 3.8 mmol/L (3.5-5.1)
[2019-10-22] MEDS: ACCU-CHEK COMFORT CURVE STRIP VI SCH ×4 (07:25→22:00)
[2019-10-22] MEDS: SODIUM CHLORIDE 0.9% 1,000 ML IV SCH ×2 (07:26→17:00)
[2019-10-22 07:28] LABS: BUN/Creatinine Ratio 14.8; Calcium 7.8 mg/dL (8.5-10.1)
[2019-10-22] MEDS: metFORMIN HYDROCHLORIDE 500 MG TAB PO SCH ×2 (08:00→17:50)
[2019-10-22] MEDS ORDERED: diphenhdrAMINE HCL 50 MG/1 ML VL ONE (09:17)
[2019-10-22] MEDS ORDERED: SODIUM CHLORIDE LOCK 10 ML ONE (09:17)
[2019-10-22] MEDS ORDERED: LIDOCAINE VISCOUS 2% 15ML UD ONE (09:17)
[2019-10-22 09:30] VITALS: BP 115/78
[2019-10-22] MEDS: ENOXAPARIN SOD 40 MG/0.4 ML SYRINGE SC SCH (10:00)
[2019-10-22] MEDS: PANTOPRAZOLE 40 MG TAB PO SCH ×2 (10:00→22:18)
[2019-10-22] MEDS: ASPirin 81 mg TAB PO SCH (10:00)
[2019-10-22] MEDS: CHOLECALCIFEROL (VITD3) 1,000UNIT=25mCg TAB PO SCH (10:00)
[2019-10-22] MEDS: SACUBITRIL-VALSARTAN 24mg/26mg TAB PO SCH ×2 (10:00→22:19)
[2019-10-22] MEDS: CEFTRIAXONE SODIUM 2 GM in D5W 5% 50 ML IV SCH (10:00)
[2019-10-22] MEDS: CARVEDILOL 3.125 MG TAB PO SCH ×2 (10:31→22:18)
[2019-10-22 12:47] VITALS: BP 123/91
[2019-10-22] MEDS: MIDAZOLAM HCL 5 MG/ML-1ML VIAL ONE ×2 (12:50→12:54)
[2019-10-22] MEDS: fentaNYL CITRATE 100 MCG/2 ML VL ONE ×2 (12:50→12:54)
[2019-10-22 16:54] VITALS: BP 111/75
[2019-10-22] MEDS: TAMSULOSIN HYDROCHLORIDE 0.4 MG CAP PO SCH (17:50)
[2019-10-22 22:00] VITALS: BP 112/79
[2019-10-22] MEDS: ATORVASTATIN 20 MG TAB PO SCH (22:18)
[2019-10-23] MEDS: SODIUM CHLORIDE 0.9% 1,000 ML IV SCH ×3 (03:00→22:34)
[2019-10-23 05:00] VITALS: BP 114/77
[2019-10-23] MEDS: FUROSEMIDE 20 MG/2 ML VIAL IV SCH ×2 (06:22→17:56)
[2019-10-23] MEDS: ACCU-CHEK COMFORT CURVE STRIP VI SCH ×4 (06:54→22:33)
[2019-10-23] MEDS: InsuLIN REG 1unit/0.01ml Soln (100units/ml) SC SCH ×4 (06:54→22:33)
[2019-10-23 09:00] VITALS: BP 126/80
[2019-10-23] MEDS: metFORMIN HYDROCHLORIDE 500 MG TAB PO SCH ×2 (09:02→18:00)
[2019-10-23] MEDS: CEFTRIAXONE SODIUM 2 GM in D5W 5% 50 ML IV SCH (09:02)
[2019-10-23] MEDS: PANTOPRAZOLE 40 MG TAB PO SCH ×2 (09:02→22:33)
[2019-10-23] MEDS: CARVEDILOL 3.125 MG TAB PO SCH ×2 (09:03→22:33)
[2019-10-23] MEDS: ENOXAPARIN SOD 40 MG/0.4 ML SYRINGE SC SCH (09:04)
[2019-10-23] MEDS: ASPirin 81 mg TAB PO SCH (09:04)
[2019-10-23] MEDS: MORPHINE SULF INJ 2 MG/ML SYRINGE 1ML IV PRN ×3 (09:05→22:35)
[2019-10-23] MEDS: CHOLECALCIFEROL (VITD3) 1,000UNIT=25mCg TAB PO SCH (09:40)
[2019-10-23] MEDS: SACUBITRIL-VALSARTAN 24mg/26mg TAB PO SCH ×2 (09:40→22:33)
[2019-10-23 13:00] VITALS: BP 135/86
[2019-10-23 16:27] VITALS: BP 120/67
[2019-10-23] MEDS: TAMSULOSIN HYDROCHLORIDE 0.4 MG CAP PO SCH (17:56)
[2019-10-23 20:00] VITALS: BP 120/74
[2019-10-23 22:06] VITALS: BP 145/75
[2019-10-23] MEDS: ATORVASTATIN 20 MG TAB PO SCH (22:33)
[2019-10-24 05:24] VITALS: BP 122/74
[2019-10-24] MEDS: FUROSEMIDE 20 MG/2 ML VIAL IV SCH ×2 (06:09→17:17)
[2019-10-24] MEDS: ACCU-CHEK COMFORT CURVE STRIP VI SCH ×4 (06:15→21:54)
[2019-10-24] MEDS: InsuLIN REG 1unit/0.01ml Soln (100units/ml) SC SCH ×4 (06:15→21:56)
[2019-10-24 08:00] VITALS: BP 122/74
[2019-10-24] MEDS: metFORMIN HYDROCHLORIDE 500 MG TAB PO SCH ×2 (08:00→18:00)
[2019-10-24 08:49] VITALS: BP_SYST 113; BP_SYST 140; BP_DIAS 81; BP_DIAS 94
[2019-10-24] MEDS: CEFTRIAXONE SODIUM 2 GM in D5W 5% 50 ML IV SCH (09:22)
[2019-10-24] MEDS: PANTOPRAZOLE 40 MG TAB PO SCH ×2 (09:24→21:53)
[2019-10-24] MEDS: CARVEDILOL 3.125 MG TAB PO SCH ×2 (09:24→21:53)
[2019-10-24] MEDS: CHOLECALCIFEROL (VITD3) 1,000UNIT=25mCg TAB PO SCH (09:24)
[2019-10-24] MEDS: ASPirin 81 mg TAB PO SCH (10:00)
[2019-10-24] MEDS: ENOXAPARIN SOD 40 MG/0.4 ML SYRINGE SC SCH (10:00)
[2019-10-24] MEDS ORDERED: ceFAZolin 1GM/50ML 50 ML IV ONE (10:39)
[2019-10-24] MEDS: SODIUM CHLORIDE 0.9% 1,000 ML IV SCH ×2 (10:42→19:00)
[2019-10-24] MEDS ORDERED: POLYETHYLENE GLYCOL 17 GM PWDR PO ONE (12:00)
[2019-10-24] MEDS ORDERED: MIDAZOLAM HCL 1MG/1ML-2 ML VIAL ONE (12:12)
[2019-10-24] MEDS ORDERED: MEPERIDINE HCL (25 MG/ML) 1ML VIAL ONE (12:12)
[2019-10-24] MEDS ORDERED: fentaNYL CITRATE 100 MCG/2 ML VL ONE (12:12)
[2019-10-24] MEDS ORDERED: PROPOFOL 10 MG/ML 20 ML IV ONE (12:15)
[2019-10-24] MEDS ORDERED: DexAMETHasone SOD PHOS 10MG/1ML VIAL INJ ONE (12:15)
[2019-10-24] MEDS ORDERED: IOHEXOL 300 MG/ML 100ML BOTTLE IJ ONE (12:35)
[2019-10-24] MEDS ORDERED: MIDAZOLAM HCL 1MG/1ML-2 ML VIAL IV PRN (13:00)
[2019-10-24] MEDS ORDERED: MORPHINE SULFATE 4 MG/ML SYR/VIAL IV PRN (13:00)
[2019-10-24] MEDS ORDERED: ePHEDrine SULFATE 50 MG/ML AMP IV PRN (13:00)
[2019-10-24] MEDS ORDERED: ACCU-CHEK COMFORT CURVE STRIP VI ONE (13:00)
[2019-10-24] MEDS ORDERED: ONDANSETRON HCL 4 MG/2 ML VIAL IV PRN (13:00)
[2019-10-24] MEDS ORDERED: LABETALOL HCL 5 MG/ML 4ML SYRINGE IV PRN (13:00)
[2019-10-24] MEDS ORDERED: HYDROmorphone HCL 2 MG/ML VL IV PRN (13:00)
[2019-10-24] MEDS: SACUBITRIL-VALSARTAN 24mg/26mg TAB PO SCH ×2 (16:25→21:53)
[2019-10-24 16:47] VITALS: BP 124/80
[2019-10-24] MEDS: TAMSULOSIN HYDROCHLORIDE 0.4 MG CAP PO SCH (17:16)
[2019-10-24 20:00] VITALS: BP 124/87
[2019-10-24] MEDS: ATORVASTATIN 20 MG TAB PO SCH (21:53)
[2019-10-24] MEDS: MORPHINE SULF INJ 2 MG/ML SYRINGE 1ML IV PRN (21:54)
[2019-10-24 22:10] VITALS: BP 124/87
[2019-10-25] MEDS: MORPHINE SULF INJ 2 MG/ML SYRINGE 1ML IV PRN (01:54)
[2019-10-25] MEDS: SODIUM CHLORIDE 0.9% 1,000 ML IV SCH (05:03)
[2019-10-25 05:32] VITALS: BP 118/73
[2019-10-25] MEDS: FUROSEMIDE 20 MG/2 ML VIAL IV SCH (06:23)
[2019-10-25] MEDS: ACCU-CHEK COMFORT CURVE STRIP VI SCH ×2 (06:24→12:12)
[2019-10-25] MEDS: InsuLIN REG 1unit/0.01ml Soln (100units/ml) SC SCH ×2 (06:24→11:30)
[2019-10-25 08:00] VITALS: BP 118/73
[2019-10-25] MEDS: metFORMIN HYDROCHLORIDE 500 MG TAB PO SCH (08:00)
[2019-10-25 09:12] VITALS: BP 109/68
[2019-10-25] MEDS: CARVEDILOL 3.125 MG TAB PO SCH (09:37)
[2019-10-25] MEDS: CEFTRIAXONE SODIUM 2 GM in D5W 5% 50 ML IV SCH (09:37)
[2019-10-25] MEDS: ENOXAPARIN SOD 40 MG/0.4 ML SYRINGE SC SCH (09:38)
[2019-10-25] MEDS: SACUBITRIL-VALSARTAN 24mg/26mg TAB PO SCH (09:38)
[2019-10-25] MEDS: CHOLECALCIFEROL (VITD3) 1,000UNIT=25mCg TAB PO SCH (09:38)
[2019-10-25] MEDS: PANTOPRAZOLE 40 MG TAB PO SCH (09:38)
[2019-10-25] MEDS ORDERED: POLYETHYLENE GLYCOL 17 GM PWDR PO PRN (10:00)
[2019-10-25] MEDS: ASPirin 81 mg TAB PO SCH (10:00)
[2019-10-25 12:26] VITALS: BP 109/69
[2019-10-25 12:38] VITALS: BP 120/83
== END 2019-10-25 14:30 | disposition home or self-care (01) | DRG 241 ==
LOC: ER 07:52 → TELE 07:53 → TELE-WESTW 17:34
PROVIDERS: ADMIT Hospitalist; ATTEND Internal Medicine
PROC: 0DB68ZX Excision of Stomach, Via Natural or Artificial Opening Endoscopic, Diagnostic (ICD-10-PCS; principal; 2019-10-22 12:38)
PROC: 0TF48ZZ Fragmentation in Left Kidney Pelvis, Via Natural or Artificial Opening Endoscopic (ICD-10-PCS; 2019-10-24)
PROC: BT1F1ZZ Fluoroscopy of Left Kidney, Ureter and Bladder using Low Osmolar Contrast (ICD-10-PCS; 2019-10-24)
DX: K29.71 Gastritis, unspecified, with bleeding (principal); N13.2 Hydronephrosis with renal and ureteral calculous obstruction; E11.22 Type 2 diabetes mellitus with diabetic chronic kidney disease; N18.3 Chronic kidney disease, stage 3 (moderate); E88.81 Metabolic syndrome and other insulin resistance; E66.01 Morbid (severe) obesity due to excess calories; I50.22 Chronic systolic (congestive) heart failure; I13.0 Hypertensive heart and chronic kidney disease with heart failure and stage 1 through stage 4 chronic kidney disease, or unspecified chronic kidney disease; Z79.4 Long term (current) use of insulin; G89.29 Other chronic pain; F17.200 Nicotine dependence, unspecified, uncomplicated; F12.90 Cannabis use, unspecified, uncomplicated; F10.10 Alcohol abuse, uncomplicated; I25.5 Ischemic cardiomyopathy; M25.512 Pain in left shoulder; M19.90 Unspecified osteoarthritis, unspecified site; Y90.9 Presence of alcohol in blood, level not specified; I25.10 Atherosclerotic heart disease of native coronary artery without angina pectoris; J45.909 Unspecified asthma, uncomplicated; Z79.82 Long term (current) use of aspirin; Z79.899 Other long term (current) drug therapy; Z82.49 Family history of ischemic heart disease and other diseases of the circulatory system; Z79.84 Long term (current) use of oral hypoglycemic drugs; Z03.818 Encounter for observation for suspected exposure to other biological agents ruled out; N17.0 Acute kidney failure with tubular necrosis; Z68.41 Body mass index [BMI] 40.0-44.9, adult
CPT/HCPCS: 36415; 43239; 71046; 74176; 80048; 80053; 81001; 82962; 83036; 83690; 83735; 84100; 84484; 85025; 85610; 85730; 87040; 93005; 96361; 96365; 96375; G0378; J0690; J0696; J1100; J1815; J1885; J2250; J2704; J3490; J7060

== ENCOUNTER → 2020-05-29 | Outpatient (CLI) | payer MEDICAID ==
[~2020-05-29] MED LIST changes: +CYAN100056 PO; +PANT40T PO
== END | disposition home or self-care (01) ==
LOC: Rad HDHVI 08:36
PROVIDERS: ATTEND Internal Medicine
DX: I07.1 Rheumatic tricuspid insufficiency (principal); I11.0 Hypertensive heart disease with heart failure; I50.20 Unspecified systolic (congestive) heart failure
CPT/HCPCS: 93306

== ENCOUNTER → 2020-06-09 | Outpatient (CLI) | payer MEDICAID ==
[~2020-06-09] VITALS: Ht 177.8 cm; Wt 129.3 kg
[~2020-06-09] MED LIST changes: +ADENOSINE 109 MG in GIVE UN-DILUTED 0 ML IV ONE; +ADENOSINE 90 MG/30 ML INJ IV ONE
== END | disposition home or self-care (01) ==
LOC: Rad HDHVI 08:46
PROVIDERS: ATTEND Internal Medicine
DX: I11.0 Hypertensive heart disease with heart failure (principal); I50.9 Heart failure, unspecified; E11.9 Type 2 diabetes mellitus without complications; E78.00 Pure hypercholesterolemia, unspecified; R07.9 Chest pain, unspecified; R06.02 Shortness of breath
CPT/HCPCS: 78452; 93005; 96374; 96375; A9500; J0153

== ENCOUNTER → 2020-10-01 | Outpatient (CLI) | payer MEDICAID ==
[~2020-10-01] MED LIST changes: -ADENOSINE 109 MG in GIVE UN-DILUTED 0 ML IV ONE; -ADENOSINE 90 MG/30 ML INJ IV ONE
== END | disposition home or self-care (01) ==
LOC: Rad HDHVI 08:08
PROVIDERS: ATTEND Internal Medicine
DX: I07.1 Rheumatic tricuspid insufficiency (principal); I11.0 Hypertensive heart disease with heart failure; I50.9 Heart failure, unspecified
CPT/HCPCS: 93306